=== PATIENT | female | born 1980 ===

== ENCOUNTER 2017-08-24 07:43 | Emergency (ER) | payer OTHER ==
[2017-08-24 07:56] VITALS: TEMP 98.3
--- NOTE | 2017-08-24 09:52 | ED PDOC ---
HPI: General Adult Time Seen by Provider: 08/24/17 08:21 Chief Complaint (Nursing): Trauma Chief Complaint (Provider): Trauma History Per: Patient History/Exam Limitations: no limitations Onset/Duration Of Symptoms: Hrs Current Symptoms Are (Timing): Still Present Additional Complaint(s): 37 year old female presents to the emergency department lower back pain and upper buttock pain after she fell down 4 stairs prior to arrival. Denies fever, chills, or any further medical complaints. Past Medical History Reviewed: Historical Data, Nursing Documentation, Vital Signs Vital Signs: Last Vital Signs Temp 98.3 F 08/24/17 11:35 Pulse 71 08/24/17 11:35 Resp 20 08/24/17 11:35 BP 117/73 08/24/17 11:35 Pulse Ox 98 08/26/17 14:08 - Medical History PMH: No Chronic Diseases - Family History Family History: States: Unknown Family Hx - Home Medications Home Medications: Ambulatory Orders Medication Instructions Recorded Naproxen [Naprosyn] 500 mg PO BID PRN #15 tablet 08/24/17 oxyCODONE/Acetaminophen [Percocet 1 tab PO Q6 PRN #20 tab 08/24/17 5/325 mg Tab] - Allergies Allergies/Adverse Reactions: Allergies Allergy/AdvReac Type Severity Reaction Status Date / Time No Known Allergies Allergy Verified 08/24/17 07:54 Review of Systems ROS Statement: Except As Marked, All Systems Reviewed And Found Negative (As per HPI, otherwise negative) Constitutional: Negative for: Fever, Chills Musculoskeletal: Positive for: Back Pain (Lower), Other (upper buttock area) Physical Exam - Reviewed Nursing Documentation Reviewed: Yes Vital Signs Reviewed: Yes - Physical Exam Appears: Positive for: No Acute Distress Head Exam: Positive for: NORMAL INSPECTION Skin: Positive for: Normal Color, Warm, Dry Cardiovascular/Chest: Positive for: Regular Rate, Rhythm. Negative for: Murmur Respiratory: Positive for: Normal Breath Sounds. Negative for: Accessory Muscle Use, Respiratory Distress Back: Positive for: Other (Lower midline spine tenderness as well as to upper buttock area). Negative for: Normal Inspection Neurologic/Psych: Positive for: Alert, Oriented (x3) - ECG O2 Sat by Pulse Oximetry: 98 (RA) Pulse Ox Interpretation: Normal Medical Decision Making Medical Decision Making: Time: 0822 Initial Impression: Lower back and buttock pain status post fall Initial Plan: Urine DIP & Preg Lumbar Spine x-ray Sacrum & Coccyx x-ray Reevaluation Time: 1112 Lumbar spine x-ray FINDINGS: BONES: Normal alignment. No listhesis. No fracture. DISC SPACES: Unremarkable. OTHER FINDINGS: Intrauterine device visualized in the pelvis. IMPRESSION: Unremarkable radiographs of the lumbar spine. Time: 1113 --Sacrum and coccyx x-ray FINDINGS: BONES: Questionable coccygeal fracture. SACROILIAC JOINTS: Unremarkable. OTHER FINDINGS: Uterine device visualized in the pelvis. IMPRESSION: Questionable coccygeal fracture with slight anterior subluxation/dislocation. Time: 1127 --Patient is medically stable for discharge with a coccygeal fracture. Given Rx for donut pillow, naprosyn 500 mg, and percocet 5/325 mg. Must follow up with Dr. Saturnino Ackerman MD. Scribe Attestation: Documented by Mary Tejeda, acting as a scribe for Dione Huffman MD. Provider Scribe Attestation: All medical record entries made by the Scribe were at my direction and personally dictated by me. I have reviewed the chart and agree that the record accurately reflects my personal performance of the history, physical exam, medical decision making, and the department course for this patient. I have also personally directed, reviewed, and agree with the discharge instructions and disposition. Disposition - Clinical Impression Clinical Impression: Coccygeal fracture - Disposition Referrals: Saturnino Ackerman MD [Medical Doctor] - Disposition: Routine/Home Disposition Time: 11:27 Condition: STABLE Prescriptions: Naproxen [Naprosyn] 500 mg PO BID PRN #15 tablet PRN Reason: Pain, Moderate (4-7) oxyCODONE/Acetaminophen [Percocet 5/325 mg Tab] 1 tab PO Q6 PRN #20 tab PRN Reason: Pain, Severe (8-10) Instructions: Coccyx Fracture Forms: [employer] ([place]), [facility] ED School/Work Excuse Print Language: SINHALA
[2017-08-24] MEDS ORDERED: Oxycodone/Acetaminophen 5/325 mg Tab PO STA (10:01)
[2017-08-24] MEDS ORDERED: Oxycodone/Acetaminophen 5/325 mg Tab ONE (10:04)
--- NOTE | 2017-08-24 11:14 | RAD ---
PROCEDURE: Radiographs of the Lumbar Spine. HISTORY: Fall COMPARISON: No prior. FINDINGS: BONES: Normal alignment. No listhesis. No fracture. DISC SPACES: Unremarkable. OTHER FINDINGS: Intrauterine device visualized in the pelvis. IMPRESSION: Unremarkable radiographs of the lumbar spine.
--- NOTE | 2017-08-24 11:15 | RAD ---
PROCEDURE: Radiographs of the Sacrum and Coccyx HISTORY: Fall COMPARISON: None available. TECHNIQUE: Frontal and lateral views of the sacrum and coccyx FINDINGS: BONES: Questionable coccygeal fracture. SACROILIAC JOINTS: Unremarkable. OTHER FINDINGS: Uterine device visualized in the pelvis. IMPRESSION: Questionable coccygeal fracture with slight anterior subluxation/dislocation.
[2017-08-24 11:36] VITALS: BP 117/73; PULSE 71; RESP 20
[2017-08-26 14:08] VITALS: O2SAT 98
== END 2017-08-24 11:36 | disposition home or self-care (01) ==
LOC: H.ER 07:43
DX: S32.2XXA Fracture of coccyx, initial encounter for closed fracture (principal); W10.9XXA Fall (on) (from) unspecified stairs and steps, initial encounter; Y92.89 Other specified places as the place of occurrence of the external cause